=== PATIENT | female | born 1985 | race Caucasian/White ===

== ENCOUNTER 2022-11-29 16:08 | Emergency (ER) | payer OTHER, MEDICAID ==
[~2022-11-29] VITALS: Ht 154.9 cm; Wt 104.8 kg
[2022-11-29 16:15] VITALS: BP_SYST 121; PULSE 119; RESP 18; TEMP 98.1; O2SAT 100
[2022-11-29 17:59] LABS: BASOPHILS # (AUTO) 0.1 K/uL (0.0-0.2); BASOPHILS % (AUTO) 0.5 % (0.0-2.0); EOSINOPHILS # (AUTO) 0.4 K/uL (0.0-0.4); EOSINOPHILS % (AUTO) 3.4 % (0.0-4.0); HEMATOCRIT 43.4 % (36-48); LYMPHOCYTES # (AUTO) 2.8 K/uL (1.0-5.5); LYMPHOCYTES % (AUTO) 24.5 % (20.5-51.5); MEAN CORPUSCULAR HEMOGLOBIN 29 pg (27-31); MEAN CORPUSCULAR HGB CONC 32 % (32-36); MEAN CORPUSCULAR VOLUME 89 fL (79.0-98.0); MONOCYTES # (AUTO) 0.7 K/uL (0.0-1.0); MONOCYTES % (AUTO) 6.1 % (1.7-9.3); NEUTROPHILS # (AUTO) 7.5 K/uL (1.8-7.7); NEUTROPHILS % (AUTO) 65.5 % (40.0-70.0); PLATELET COUNT (AUTO) 307 K/uL (130-430); RED BLOOD CELL COUNT(AUTO) 4.86 MIL/uL (4.2-6.2); RED CELL DISTRIBUTION WIDTH 14.2 % (9.0-15.0); WHITE BLOOD COUNT (AUTO) 11.5 K/uL (4.8-10.8)
[2022-11-29] MEDS ORDERED: NACL 0.9% 1,000 ML IV ONE (18:00)
[2022-11-29] MEDS ORDERED: INSULIN REGULAR, HUMAN 10 UNITS/0.1 ML, 3 ML VIAL IVP ONE (18:00)
[2022-11-29 18:15] LABS: ACETONE, SERUM NEGATIVE (NEGATIVE)
[2022-11-29 18:19] LABS: ALANINE AMINOTRANSFERASE 10 U/L (12-78); ALBUMIN 3.3 g/dL (3.4-4.8); ANION GAP 12 (5-15); ASPARTATE AMINOTRANSFERASE 8 U/L (10-37); CARBON DIOXIDE 23 mmol/L (23-29); CHLORIDE 95 mmol/L (98-107); GFR AFRICAN AMERICAN 103 mL/min (>90); POTASSIUM 4.1 mmol/L (3.5-5.1); SODIUM SERUM 130 mmol/L (136-145); TOTAL BILIRUBIN 0.2 mg/dL (0.0-1.0); TOTAL PROTEIN, SERUM 7.7 g/dL (6.4-8.3); UREA NITROGEN, BLOOD 12 mg/dL (8-21)
[2022-11-29 18:20] LABS: GFR NON AFRICAN-AMERICAN 85 mL/min (>90)
[2022-11-29 18:22] LABS: GLUCOSE 440 mg/dL (74-106)
[2022-11-29 19:51] VITALS: BP_SYST 134; PULSE 79; RESP 18; TEMP 98.3; O2SAT 97
== END 2022-11-29 19:51 | disposition home or self-care (01) ==
LOC: SED 16:08
DX: E11.65 Type 2 diabetes mellitus with hyperglycemia (principal); I10 Essential (primary) hypertension; J45.909 Unspecified asthma, uncomplicated; Z88.2 Allergy status to sulfonamides; Z79.899 Other long term (current) drug therapy
CPT/HCPCS: 99283; 96374; 96361; 80053; 82009; 82962; 85025; 36415; J7030; J1815

== ENCOUNTER 2022-12-16 16:12 | Emergency (ER) | payer OTHER, MEDICAID ==
[~2022-12-16] VITALS: Ht 154.9 cm; Wt 103.4 kg
[2022-12-16 16:30] VITALS: BP_SYST 102; PULSE 107; RESP 18; TEMP 98.1; O2SAT 97
[2022-12-16] MEDS ORDERED: IBUP-1968 PO (21:08)
[2022-12-16] MEDS ORDERED: IBUPROFEN 400 MG TABLET PO ONE (21:15)
[2022-12-16 22:56] VITALS: BP_SYST 115; PULSE 103; RESP 22; TEMP 98.1; O2SAT 94
== END 2022-12-16 22:56 | disposition home or self-care (01) ==
LOC: SED 16:12
DX: E11.65 Type 2 diabetes mellitus with hyperglycemia (principal); M25.531 Pain in right wrist; J45.909 Unspecified asthma, uncomplicated; I10 Essential (primary) hypertension; Z88.2 Allergy status to sulfonamides; Z79.899 Other long term (current) drug therapy
CPT/HCPCS: 99283

== ENCOUNTER 2023-02-17 18:27 | Emergency (ER) | payer OTHER, MEDICAID ==
[~2023-02-17] VITALS: Ht 154.9 cm; Wt 101.6 kg
[~2023-02-17 18:27] MED LIST: IBUP-1968 PO
[2023-02-17 19:34] VITALS: BP_SYST 109; PULSE 100; RESP 19; TEMP 97.8; O2SAT 97
[2023-02-17] MEDS ORDERED: ACETAMINOPHEN 500 MG TABLET PO ONE (23:15)
[2023-02-17] MEDS ORDERED: IBUPROFEN 600 MG TABLET PO ONE (23:15)
[2023-02-17] MEDS ORDERED: IBUP-1969 PO (23:55)
[2023-02-17] MEDS ORDERED: ACET-2634 PO (23:55)
[2023-02-18 00:06] VITALS: BP_SYST 103; PULSE 89; RESP 20; TEMP 97.9; O2SAT 95
== END 2023-02-18 00:06 | disposition home or self-care (01) ==
LOC: SED 18:27
DX: S63.92XA Sprain of unspecified part of left wrist and hand, initial encounter (principal); S80.12XA Contusion of left lower leg, initial encounter; S30.0XXA Contusion of lower back and pelvis, initial encounter; J45.909 Unspecified asthma, uncomplicated; E11.9 Type 2 diabetes mellitus without complications; I10 Essential (primary) hypertension; Z88.2 Allergy status to sulfonamides; Z79.899 Other long term (current) drug therapy; W18.40XA Slipping, tripping and stumbling without falling, unspecified, initial encounter; Y93.89 Activity, other specified; Y92.89 Other specified places as the place of occurrence of the external cause; Y99.8 Other external cause status
CPT/HCPCS: 72100-TC; 73590-TC; 99284

== ENCOUNTER 2023-05-08 15:13 | Emergency (ER) | payer OTHER, MEDICAID ==
[~2023-05-08] VITALS: Ht 162.6 cm; Wt 72.6 kg
[~2023-05-08 15:13] MED LIST changes: +ACET-2634 PO; +IBUP-1969 PO
[2023-05-08 16:25] VITALS: BP_SYST 108; PULSE 115; RESP 18; TEMP 97.7; O2SAT 96
[2023-05-08 16:59] LABS: ANION GAP 9 (5-15); CALCIUM 9.7 mg/dL (8.4-11.0); CARBON DIOXIDE 29 mmol/L (23-29); CHLORIDE 97 mmol/L (98-107); CREATININE 0.83 mg/dL (0.55-1.30); GFR AFRICAN AMERICAN 98 mL/min (>90); GLUCOSE 371 mg/dL (74-106); POTASSIUM 4.6 mmol/L (3.5-5.1); SODIUM SERUM 135 mmol/L (136-145); UREA NITROGEN, BLOOD 17 mg/dL (8-21)
[2023-05-08 17:01] LABS: GFR NON AFRICAN-AMERICAN 81 mL/min (>90)
[2023-05-08 17:03] LABS: ALANINE AMINOTRANSFERASE 31 U/L (12-78); ALBUMIN 3.3 g/dL (3.4-4.8); AMYLASE 57 U/L (0-100); ASPARTATE AMINOTRANSFERASE 10 U/L (10-37); BILIRUBIN,DIRECT 0.1 mg/dL (0.0-0.3); LIPASE 58 U/L (16-77); TOTAL BILIRUBIN 0.2 mg/dL (0.0-1.0); TOTAL PROTEIN, SERUM 7.4 g/dL (6.4-8.3)
[2023-05-08 17:06] LABS: BASOPHILS # (AUTO) 0.1 K/uL (0.0-0.2); BASOPHILS % (AUTO) 0.5 % (0.0-2.0); EOSINOPHILS # (AUTO) 0.3 K/uL (0.0-0.4); EOSINOPHILS % (AUTO) 2.6 % (0.0-4.0); HEMATOCRIT 42.1 % (36-48); HEMOGLOBIN 13.9 g/dL (12.0-16.0); LYMPHOCYTES # (AUTO) 2.3 K/uL (1.0-5.5); MEAN CORPUSCULAR HEMOGLOBIN 30 pg (27-31); MEAN CORPUSCULAR HGB CONC 33 % (32-36); MEAN CORPUSCULAR VOLUME 91 fL (79.0-98.0); MONOCYTES # (AUTO) 0.7 K/uL (0.0-1.0); MONOCYTES % (AUTO) 5.4 % (1.7-9.3); NEUTROPHILS # (AUTO) 8.7 K/uL (1.8-7.7); NEUTROPHILS % (AUTO) 72.5 % (40.0-70.0); PLATELET COUNT (AUTO) 318 K/uL (130-430); RED BLOOD CELL COUNT(AUTO) 4.64 MIL/uL (4.2-6.2); RED CELL DISTRIBUTION WIDTH 13.9 % (9.0-15.0)
[2023-05-08 17:11] LABS: ACETONE, SERUM NEGATIVE (NEGATIVE)
[2023-05-08] MEDS ORDERED: INSULIN REGULAR, HUMAN 10 UNITS/0.1 ML, 3 ML VIAL SUBCUT ONE (18:00)
[2023-05-08 18:17] VITALS: BP_SYST 112; PULSE 68; RESP 16; TEMP 97.7; O2SAT 98
[2023-05-08] MEDS ORDERED: INSULIN REGULAR, HUMAN 100 UNITS/ML, 3 ML VIAL SUBCUT ONE (18:30)
== END 2023-05-08 18:17 | disposition home or self-care (01) ==
LOC: SED 15:13
DX: E11.65 Type 2 diabetes mellitus with hyperglycemia (principal); J45.909 Unspecified asthma, uncomplicated; I10 Essential (primary) hypertension; Z88.2 Allergy status to sulfonamides; Z79.899 Other long term (current) drug therapy
CPT/HCPCS: 99283; 80076; 80048; 82009; 82150; 83690; 85025; 36415; 96372; 82948; J1815

== ENCOUNTER 2023-05-10 16:16 | Emergency (ER) | payer OTHER, MEDICAID ==
[~2023-05-10] VITALS: Ht 154.9 cm; Wt 98.4 kg
[2023-05-10 16:26] VITALS: BP_SYST 111; PULSE 119; RESP 19; TEMP 97.7; O2SAT 94
[2023-05-10] MEDS ORDERED: BACI15OI13 TP (17:23)
[2023-05-10] MEDS ORDERED: AUG875 PO (17:23)
[2023-05-10 18:44] VITALS: BP_SYST 111; PULSE 119; RESP 19; TEMP 97.7; O2SAT 94
== END 2023-05-10 18:44 | disposition home or self-care (01) ==
LOC: SED 16:16
DX: S01.25XA Open bite of nose, initial encounter (principal); J45.909 Unspecified asthma, uncomplicated; E11.9 Type 2 diabetes mellitus without complications; I10 Essential (primary) hypertension; Z88.2 Allergy status to sulfonamides; Z79.899 Other long term (current) drug therapy; W54.0XXA Bitten by dog, initial encounter; Y93.89 Activity, other specified; Y92.89 Other specified places as the place of occurrence of the external cause; Y99.8 Other external cause status
CPT/HCPCS: 99283

== ENCOUNTER 2023-06-01 16:13 | Emergency (ER) | payer OTHER, MEDICAID ==
[~2023-06-01] VITALS: Ht 154.9 cm; Wt 99.8 kg
[~2023-06-01 16:13] MED LIST changes: +AUG875 PO; +BACI15OI13 TP
[2023-06-01 16:50] VITALS: BP_SYST 104; PULSE 93; RESP 18; TEMP 97.4; O2SAT 94
[2023-06-01 17:49] LABS: BASOPHILS # (AUTO) 0.1 K/uL (0.0-0.2); BASOPHILS % (AUTO) 0.6 % (0.0-2.0); EOSINOPHILS # (AUTO) 0.4 K/uL (0.0-0.4); EOSINOPHILS % (AUTO) 2.8 % (0.0-4.0); HEMOGLOBIN 13.3 g/dL (12.0-16.0); LYMPHOCYTES # (AUTO) 3.3 K/uL (1.0-5.5); LYMPHOCYTES % (AUTO) 24.8 % (20.5-51.5); MEAN CORPUSCULAR HEMOGLOBIN 30 pg (27-31); MEAN CORPUSCULAR HGB CONC 33 % (32-36); MEAN CORPUSCULAR VOLUME 90 fL (79.0-98.0); MONOCYTES # (AUTO) 0.7 K/uL (0.0-1.0); NEUTROPHILS # (AUTO) 8.8 K/uL (1.8-7.7); NEUTROPHILS % (AUTO) 66.8 % (40.0-70.0); PLATELET COUNT (AUTO) 381 K/uL (130-430); RED BLOOD CELL COUNT(AUTO) 4.43 MIL/uL (4.2-6.2); RED CELL DISTRIBUTION WIDTH 13.9 % (9.0-15.0); WHITE BLOOD COUNT (AUTO) 13.2 K/uL (4.8-10.8)
[2023-06-01 18:09] LABS: CALCIUM 9.2 mg/dL (8.4-11.0); CREATININE 0.75 mg/dL (0.55-1.30); POTASSIUM 4.6 mmol/L (3.5-5.1)
[2023-06-01 18:19] LABS: BILIRUBIN,DIRECT 0.1 mg/dL (0.0-0.3); TOTAL BILIRUBIN 0.2 mg/dL (0.0-1.0); TOTAL PROTEIN, SERUM 7.4 g/dL (6.4-8.3)
== END 2023-06-01 19:54 | disposition left against medical advice (07) ==
LOC: SED 16:13
DX: R19.7 Diarrhea, unspecified (principal); Z53.21 Procedure and treatment not carried out due to patient leaving prior to being seen by health care provider
CPT/HCPCS: 36415; 80048; 80076; 85025; 99281

== ENCOUNTER 2023-06-18 15:15 | Emergency (ER) | payer OTHER, MEDICAID ==
[~2023-06-18] VITALS: Ht 154.9 cm; Wt 101.2 kg
[2023-06-18 15:20] VITALS: BP_SYST 93; PULSE 107; RESP 18; TEMP 98.3; O2SAT 96
[2023-06-18 17:19] LABS: BASOPHILS # (AUTO) 0.1 K/uL (0.0-0.2); BASOPHILS % (AUTO) 0.8 % (0.0-2.0); EOSINOPHILS # (AUTO) 0.4 K/uL (0.0-0.4); EOSINOPHILS % (AUTO) 4.5 % (0.0-4.0); HEMATOCRIT 38.8 % (36-48); HEMOGLOBIN 13.1 g/dL (12.0-16.0); LYMPHOCYTES # (AUTO) 2.5 K/uL (1.0-5.5); LYMPHOCYTES % (AUTO) 25.4 % (20.5-51.5); MEAN CORPUSCULAR HEMOGLOBIN 30 pg (27-31); MEAN CORPUSCULAR HGB CONC 34 % (32-36); MEAN CORPUSCULAR VOLUME 89 fL (79.0-98.0); MONOCYTES # (AUTO) 0.6 K/uL (0.0-1.0); MONOCYTES % (AUTO) 5.6 % (1.7-9.3); NEUTROPHILS # (AUTO) 6.3 K/uL (1.8-7.7); NEUTROPHILS % (AUTO) 63.7 % (40.0-70.0); PLATELET COUNT (AUTO) 325 K/uL (130-430); RED BLOOD CELL COUNT(AUTO) 4.34 MIL/uL (4.2-6.2); WHITE BLOOD COUNT (AUTO) 9.9 K/uL (4.8-10.8)
[2023-06-18 18:28] LABS: ANION GAP 10 (5-15); CARBON DIOXIDE 25 mmol/L (23-29); CHLORIDE 100 mmol/L (98-107); CREATININE 0.65 mg/dL (0.55-1.30); GFR AFRICAN AMERICAN 131 mL/min (>90); GFR NON AFRICAN-AMERICAN 108 mL/min (>90); GLUCOSE 286 mg/dL (74-106); POTASSIUM 4.2 mmol/L (3.5-5.1); SODIUM SERUM 135 mmol/L (136-145); UREA NITROGEN, BLOOD 8 mg/dL (8-21)
[2023-06-18 18:56] LABS: ACETONE, SERUM NEGATIVE (NEGATIVE)
== END 2023-06-18 19:41 | disposition home or self-care (01) ==
LOC: SED 15:15
DX: E11.65 Type 2 diabetes mellitus with hyperglycemia (principal); J45.909 Unspecified asthma, uncomplicated; I10 Essential (primary) hypertension; Z88.2 Allergy status to sulfonamides; Z79.899 Other long term (current) drug therapy
CPT/HCPCS: 36415; 80048; 82009; 82948; 83605; 85025; 99283

== ENCOUNTER 2023-07-07 11:07 | Emergency (ER) | payer OTHER, MEDICAID ==
[~2023-07-07] VITALS: Ht 154.9 cm; Wt 101.2 kg
[2023-07-07 11:10] VITALS: BP_SYST 112; PULSE 116; RESP 20; TEMP 97.9; O2SAT 98
[2023-07-07] MEDS ORDERED: PENI500T PO (11:24)
[2023-07-07] MEDS ORDERED: BENZ1LOZ73 PO (11:24)
[2023-07-07] MEDS ORDERED: PRED50TA PO (11:24)
[2023-07-07 11:25] VITALS: BP_SYST 112; PULSE 116; RESP 20; TEMP 97.9; O2SAT 98
== END 2023-07-07 12:00 | disposition home or self-care (01) ==
LOC: SED 12:00
DX: K12.2 Cellulitis and abscess of mouth (principal); J45.909 Unspecified asthma, uncomplicated; E11.9 Type 2 diabetes mellitus without complications; I10 Essential (primary) hypertension; Z88.2 Allergy status to sulfonamides; Z79.899 Other long term (current) drug therapy
CPT/HCPCS: 99283

== ENCOUNTER 2023-08-09 08:11 | Emergency (ER) | payer OTHER, MEDICAID ==
[~2023-08-09] VITALS: Ht 157.5 cm; Wt 101.2 kg
[2023-08-09 08:11] VITALS: BP_SYST 110; PULSE 89; RESP 18; TEMP 97.1; O2SAT 97
[~2023-08-09 08:11] MED LIST changes: +BENZ1LOZ73 PO; +PENI500T PO; +PRED50TA PO
[2023-08-09 09:40] LABS: BASOPHILS # (AUTO) 0.1 K/uL (0.0-0.2); BASOPHILS % (AUTO) 0.8 % (0.0-2.0); EOSINOPHILS # (AUTO) 0.3 K/uL (0.0-0.4); HEMATOCRIT 43.3 % (36-48); HEMOGLOBIN 14.5 g/dL (12.0-16.0); LYMPHOCYTES # (AUTO) 1.8 K/uL (1.0-5.5); LYMPHOCYTES % (AUTO) 21.2 % (20.5-51.5); MEAN CORPUSCULAR HEMOGLOBIN 30 pg (27-31); MEAN CORPUSCULAR HGB CONC 34 % (32-36); MEAN CORPUSCULAR VOLUME 91 fL (79.0-98.0); MONOCYTES # (AUTO) 0.5 K/uL (0.0-1.0); MONOCYTES % (AUTO) 6.5 % (1.7-9.3); NEUTROPHILS # (AUTO) 5.6 K/uL (1.8-7.7); NEUTROPHILS % (AUTO) 67.5 % (40.0-70.0); PLATELET COUNT (AUTO) 350 K/uL (130-430); RED BLOOD CELL COUNT(AUTO) 4.78 MIL/uL (4.2-6.2); RED CELL DISTRIBUTION WIDTH 13.8 % (9.0-15.0); WHITE BLOOD COUNT (AUTO) 8.3 K/uL (4.8-10.8)
[2023-08-09 10:05] LABS: BILIRUBIN,URINE NEGATIVE (NEGATIVE); CLARITY/URINE CLOUDY (CLEAR); COLOR,URINE YELLOW (YELLOW); GLUCOSE,URINE 3+ (NEGATIVE); KETONES,URINE NEGATIVE (NEGATIVE); LEUKOCYTE ESTERASE ,URINE 3+ (NEGATIVE); PROTEIN URINE TRACE (NEGATIVE)
[2023-08-09 10:06] LABS: BLOOD, URINE 2+ (NEGATIVE); NITRITE, URINE NEGATIVE (NEGATIVE); UROBILINOGEN,URINE 0.2 (0.2-1.0)
[2023-08-09 10:18] LABS: BACTERIA,URINE FEW /HPF (None Seen); RBC,URINE 20-50 /HPF (0-3); WBC,URINE 80-100 /HPF (0-3); YEAST,URINE Few /HPF (None Seen)
[2023-08-09 10:28] LABS: CALCIUM 9.4 mg/dL (8.4-11.0); CREATININE 0.86 mg/dL (0.55-1.30); POTASSIUM 4.6 mmol/L (3.5-5.1)
[2023-08-09] MEDS ORDERED: CIPR500T5 PO (10:37)
[2023-08-09] MEDS: NACL 0.9% 1,000 ML IV ONE (11:05)
[2023-08-09] MEDS: INSULIN REGULAR, HUMAN 10 UNITS/0.1 ML, 3 ML VIAL IVP ONE (11:06)
[2023-08-09 12:06] VITALS: BP_SYST 123; PULSE 90; RESP 18; TEMP 97.6; O2SAT 98
== END 2023-08-10 12:06 | disposition home or self-care (01) ==
LOC: SED 08:11
DX: E11.65 Type 2 diabetes mellitus with hyperglycemia (principal); N39.0 Urinary tract infection, site not specified; I10 Essential (primary) hypertension; J45.909 Unspecified asthma, uncomplicated; Z88.2 Allergy status to sulfonamides; Z79.899 Other long term (current) drug therapy; Z79.2 Long term (current) use of antibiotics
CPT/HCPCS: 99283; 96374; 96361; 80048; 81001; 85025; 87086; 36415; 82948; J1815; J7030; 81000; 81015

== ENCOUNTER 2023-10-01 09:00 | Emergency (ER) | payer OTHER, MEDICAID ==
[~2023-10-01] VITALS: Ht 154.9 cm; Wt 104.3 kg
[2023-10-01 09:00] VITALS: BP_SYST 127; PULSE 89; RESP 18; TEMP 96.9; O2SAT 97
[~2023-10-01 09:00] MED LIST changes: +CIPR500T5 PO
[2023-10-01 09:47] LABS: BASOPHILS # (AUTO) 0.1 K/uL (0.0-0.2); BASOPHILS % (AUTO) 1.1 % (0.0-2.0); EOSINOPHILS # (AUTO) 0.3 K/uL (0.0-0.4); EOSINOPHILS % (AUTO) 3.6 % (0.0-4.0); HEMATOCRIT 44.9 % (36-48); HEMOGLOBIN 15.4 g/dL (12.0-16.0); LYMPHOCYTES # (AUTO) 1.7 K/uL (1.0-5.5); LYMPHOCYTES % (AUTO) 20.4 % (20.5-51.5); MEAN CORPUSCULAR HEMOGLOBIN 30 pg (27-31); MEAN CORPUSCULAR HGB CONC 34 % (32-36); MEAN CORPUSCULAR VOLUME 89 fL (79.0-98.0); MONOCYTES # (AUTO) 0.5 K/uL (0.0-1.0); MONOCYTES % (AUTO) 5.9 % (1.7-9.3); NEUTROPHILS # (AUTO) 5.6 K/uL (1.8-7.7); PLATELET COUNT (AUTO) 359 K/uL (130-430); RED BLOOD CELL COUNT(AUTO) 5.08 MIL/uL (4.2-6.2); RED CELL DISTRIBUTION WIDTH 13.1 % (9.0-15.0); WHITE BLOOD COUNT (AUTO) 8.1 K/uL (4.8-10.8)
[2023-10-01] MEDS: NACL 0.9% 1,000 ML IV ONE (09:59)
[2023-10-01] MEDS: INSULIN REGULAR, HUMAN 100 UNITS/ML, 3 ML VIAL SUBCUT ONE (10:02)
[2023-10-01 11:06] LABS: CALCIUM 9.2 mg/dL (8.4-11.0); CREATININE 0.97 mg/dL (0.55-1.30); POTASSIUM 5.1 mmol/L (3.5-5.1)
[2023-10-01 11:46] LABS: BILIRUBIN,URINE NEGATIVE (NEGATIVE); BLOOD, URINE NEGATIVE (NEGATIVE); CLARITY/URINE SL CLOUDY (CLEAR); COLOR,URINE YELLOW (YELLOW); GLUCOSE,URINE 3+ (NEGATIVE); KETONES,URINE NEGATIVE (NEGATIVE); LEUKOCYTE ESTERASE ,URINE 1+ (NEGATIVE); NITRITE, URINE NEGATIVE (NEGATIVE); PROTEIN URINE NEGATIVE (NEGATIVE); UROBILINOGEN,URINE 0.2 (0.2-1.0)
[2023-10-01 12:13] LABS: BACTERIA,URINE FEW /HPF (None Seen); RBC,URINE 0-3 /HPF (0-3)
[2023-10-01] MEDS ORDERED: CEPH-548 PO (12:18)
== END 2023-10-01 12:37 ==
LOC: SED 09:00
DX: E11.65 Type 2 diabetes mellitus with hyperglycemia (principal); N39.0 Urinary tract infection, site not specified; I10 Essential (primary) hypertension; J45.909 Unspecified asthma, uncomplicated; Z88.2 Allergy status to sulfonamides; Z79.899 Other long term (current) drug therapy; Z79.2 Long term (current) use of antibiotics
CPT/HCPCS: 36415; 80048; 81000; 81001; 81015; 81025; 82948; 85025; 87086; 99283

== ENCOUNTER 2023-11-29 14:52 | Emergency (ER) | payer OTHER, MEDICAID ==
[~2023-11-29] VITALS: Ht 154.9 cm; Wt 98.4 kg
[2023-11-29 14:52] VITALS: BP_SYST 92; PULSE 101; RESP 18; TEMP 97.7; O2SAT 99
[~2023-11-29 14:52] MED LIST changes: +CEPH-548 PO
[2023-11-29] MEDS: cephALEXin 500 MG CAPSULE PO ONE (16:33)
[2023-11-29] MEDS: BACITRACIN ZINC 15 GM TOPICAL OINTMENT TP ONE (16:33)
[2023-11-29] MEDS ORDERED: NEOM28.36 TP (16:35)
[2023-11-29] MEDS ORDERED: CEPH-548 PO (16:35)
[2023-11-29] MEDS ORDERED: BACITRACIN 1 GM OINT TP ONE (16:38)
== END 2023-11-29 16:53 | disposition home or self-care (01) ==
LOC: SED 14:52
DX: S30.811A Abrasion of abdominal wall, initial encounter (principal); J45.909 Unspecified asthma, uncomplicated; E11.9 Type 2 diabetes mellitus without complications; I10 Essential (primary) hypertension; Z88.2 Allergy status to sulfonamides; Z79.899 Other long term (current) drug therapy; Z79.2 Long term (current) use of antibiotics; X58.XXXA Exposure to other specified factors, initial encounter; Y93.89 Activity, other specified; Y92.89 Other specified places as the place of occurrence of the external cause; Y99.8 Other external cause status
CPT/HCPCS: 99283

== ENCOUNTER 2023-12-19 06:37 | Emergency (ER) | payer OTHER, MEDICAID ==
[~2023-12-19] VITALS: Ht 154.9 cm; Wt 98.4 kg
[~2023-12-19 06:37] MED LIST changes: +NEOM28.36 TP
[2023-12-19 06:58] VITALS: BP_SYST 113; PULSE 94; RESP 18; TEMP 96.5; O2SAT 97
[2023-12-19] MEDS ORDERED: BACITRACIN 1 GM OINT TP ONE (07:02)
[2023-12-19] MEDS ORDERED: DOXY100C5 PO (07:09)
[2023-12-19] MEDS ORDERED: MYCOLOG15 TP (07:09)
[2023-12-19 07:57] VITALS: BP_SYST 118; PULSE 92; RESP 18; TEMP 97.2; O2SAT 98
== END 2023-12-19 08:01 | disposition home or self-care (01) ==
LOC: SED 06:37
DX: S31.109A Unspecified open wound of abdominal wall, unspecified quadrant without penetration into peritoneal cavity, initial encounter (principal); B37.89 Other sites of candidiasis; J45.909 Unspecified asthma, uncomplicated; E11.9 Type 2 diabetes mellitus without complications; I10 Essential (primary) hypertension; Z88.2 Allergy status to sulfonamides; X58.XXXA Exposure to other specified factors, initial encounter; Y93.89 Activity, other specified; Y92.89 Other specified places as the place of occurrence of the external cause; Y99.8 Other external cause status
CPT/HCPCS: 99283

== ENCOUNTER 2024-01-20 15:18 | Emergency (ER) | payer OTHER, MEDICAID ==
[~2024-01-20] VITALS: Ht 154.9 cm; Wt 108.0 kg
[~2024-01-20 15:18] MED LIST changes: +DOXY100C5 PO; +MYCOLOG15 TP
[2024-01-20 15:30] VITALS: BP_SYST 110; PULSE 100; RESP 18; TEMP 97.5; O2SAT 97
[2024-01-20] MEDS ORDERED: IBUP-1968 PO (17:55)
[2024-01-20] MEDS: IBUPROFEN 400 MG TABLET PO ONE (18:12)
[2024-01-20 19:14] VITALS: BP_SYST 120; PULSE 98; RESP 18; TEMP 97.5; O2SAT 97
== END 2024-01-20 19:14 | disposition home or self-care (01) ==
LOC: SED 15:18
DX: S62.115A Nondisplaced fracture of triquetrum [cuneiform] bone, left wrist, initial encounter for closed fracture (principal); S20.219A Contusion of unspecified front wall of thorax, initial encounter; J45.909 Unspecified asthma, uncomplicated; E11.9 Type 2 diabetes mellitus without complications; I10 Essential (primary) hypertension; Z88.2 Allergy status to sulfonamides; Z79.899 Other long term (current) drug therapy; Z79.2 Long term (current) use of antibiotics; W01.0XXA Fall on same level from slipping, tripping and stumbling without subsequent striking against object, initial encounter; Y93.89 Activity, other specified; Y92.89 Other specified places as the place of occurrence of the external cause; Y99.8 Other external cause status
CPT/HCPCS: 71045; 99284